=== PATIENT | male | born 1975 | race Caucasian/White ===

== ENCOUNTER 2019-07-13 15:05 | Emergency (ER) | payer MEDICAID, OTHER ==
[~2019-07-13] VITALS: Ht 182.9 cm; Wt 92.0 kg
[2019-07-13 15:29] VITALS: BP 153/110
[2019-07-13 16:11] LABS: BASOPHILS # (AUTO) 0.1 X10'3 (0-0.2); EOSINOPHILS # (AUTO) 0.2 X10'3 (0-0.9); EOSINOPHILS % (AUTO) 2.2 % (0-6); HEMATOCRIT 35.9 % (42.0-52.0); HEMOGLOBIN 12.4 g/dl (14.0-17.9); LYMPHOCYTES # (AUTO) 1.3 X10'3 (1.1-4.8); LYMPHOCYTES % (AUTO) 13.9 % (21-51); MEAN CORPUSCULAR HEMOGLOBIN 37.4 PG (27.0-31.0); MEAN CORPUSCULAR HGB CONC 34.6 g/dL (33.0-36.5); MEAN PLATELET VOLUME 8.8 FL (7.4-10.4); MONOCYTES # (AUTO) 0.7 X10'3 (0-0.9); MONOCYTES % (AUTO) 7.2 % (2-12); NEUTROPHILS # (AUTO) 7.2 X10'3 (1.8-7.7); NEUTROPHILS % (AUTO) 75.7 % (42-75); PLATELET COUNT 166 X10'3 (140-440); RED BLOOD COUNT 3.32 X10'6 (4.70-6.10); RED CELL DISTRIBUTION WIDTH 15.1 % (11.5-14.5); WHITE BLOOD COUNT 9.5 X10'3 (4.5-11.0)
[2019-07-13 16:28] LABS: ALANINE AMINOTRANSFERASE 61 U/L (12-78); ALBUMIN 2.5 G/DL (3.4-5.0); ALKALINE PHOSPHATASE 273 IU/L (46-116); ANION GAP 9 (8-16); ASPARTATE AMINO TRANSFERASE 184 U/L (10-37); BILIRUBIN,TOTAL 3.9 MG/DL (0.1-1.0); BLOOD UREA NITROGEN 7 MG/DL (7-18); BUN/CREATININE RATIO 8.6 (5.4-32.0); CALCIUM 8.8 MG/DL (8.5-10.1); CHLORIDE 101 MMOL/L (99-107); CREATININE 0.81 MG/DL (0.60-1.10); GLUCOSE 86 MG/DL (70-104); LIPASE 540 U/L (73-393); POTASSIUM 3.4 MMOL/L (3.5-5.1); SODIUM 134 MMOL/L (135-145); TOTAL CARBON DIOXIDE 24.1 MMOL/L (24-32); eGFR > 90 ML/MIN
[2019-07-13 16:31] LABS: ALBUMIN/GLOBULIN RATIO 0.5 (1.1-1.5); TOTAL PROTEIN 7.1 G/DL (6.4-8.2)
[2019-07-13 16:44] LABS: CLARITY,URINE CLEAR (Clear); COLOR,URINE AMBER (Yellow)
[2019-07-13 16:47] LABS: UA COLLECTION TYPE URINAL
[2019-07-13 16:51] LABS: BACTERIA,URINE NONE SEEN /HPF (Neg); COARSE GRANULAR CAST 0-3 /LPF (NEGATIVE); MUCUS STRANDS MODERATE /LPF (Neg); RBC,URINE NONE SEEN /HPF (0-2); SQUAMOUS EPITHELIAL CELL,UR FEW /LPF (FEW); WBC,URINE 0-4 /HPF (0-4)
[2019-07-13 19:49] LABS: ETHANOL 0.152 GM/DL (0.0-0.010)
[2019-07-13] MEDS ORDERED: normal saline 1000ML IV soln IVB ONE (20:10)
[2019-07-13] MEDS ORDERED: phenobarbital inj 260 MG in normal saline 100ml IV soln 100 ML IV ONE (20:10)
[2019-07-13 20:20] LABS: MAGNESIUM 1.9 MG/DL (1.5-2.4)
[2019-07-13 21:12] LABS: PARTIAL THROMBOPLASTIN TIME 35 SECONDS (22-32)
== END 2019-07-13 21:02 | disposition left against medical advice (07) ==
LOC: ER 15:05
DX: R14.0 Abdominal distension (gaseous) (principal); F10.239 Alcohol dependence with withdrawal, unspecified; F10.229 Alcohol dependence with intoxication, unspecified; R60.1 Generalized edema; R74.0 Nonspecific elevation of levels of transaminase and lactic acid dehydrogenase [LDH]; K85.90 Acute pancreatitis without necrosis or infection, unspecified; K70.31 Alcoholic cirrhosis of liver with ascites; K80.20 Calculus of gallbladder without cholecystitis without obstruction; K76.6 Portal hypertension; Z56.0 Unemployment, unspecified; Y90.0 Blood alcohol level of less than 20 mg/100 ml
CPT/HCPCS: 36415; 74176; 80053; 80320; 81001; 83690; 83735; 85025; 85379; 85610; 85730; 99284

== ENCOUNTER 2019-07-18 09:00 | Emergency (ER) | payer MEDICAID, OTHER ==
[~2019-07-18] VITALS: Ht 182.9 cm; Wt 91.0 kg
[2019-07-18] MEDS ORDERED: LIDOcaine 1% W/epiNEPHrine 1:100,000 20ml vial SQ ONE (09:35)
[2019-07-18] MEDS ORDERED: chlordiazePOXIDE 25mg capsule PO ONE (11:40)
[2019-07-18 12:00] VITALS: BP 130/87
[2019-07-18] MEDS ORDERED: CHLO25CA10 PO (12:19)
[2019-07-18 13:10] LABS: ALBUMIN,BODY FLUID 0.7 G/DL; LDH,BODY FLUID 55 U/L
[2019-07-18 13:18] LABS: BF RBC COUNT 96 /CU MM; BF WBC COUNT 77 /CU MM (0-1000); BFAPPEAR CLEAR; BFCOLOR YELLOW; BFVOLUME 40 ML
[2019-07-18 13:22] LABS: BF MESOTHELIAL CELLS FEW; LYMPHOCYTES,BODY FLUID 14 %; MONOCYTES,BODY FLUID 74 %; NEUTROPHILS,BODY FLUID 12 %
[2019-07-18 13:23] LABS: OTHER CELLS,BODY FLUID MACROPHAGES; TOTAL PROTEIN,BODY FLUID < 2.0 G/DL
== END 2019-07-18 12:04 | disposition home or self-care (01) ==
LOC: ER 09:01
DX: K70.31 Alcoholic cirrhosis of liver with ascites (principal); Z56.0 Unemployment, unspecified; Z79.899 Other long term (current) drug therapy; M79.89 Other specified soft tissue disorders
CPT/HCPCS: 49083; 71045; 82042; 83615; 84157; 87070; 89051; 99285

== ENCOUNTER 2019-07-23 20:56 | Emergency (ER) | payer MEDICAID, OTHER ==
[~2019-07-23] VITALS: Ht 182.9 cm; Wt 86.0 kg
[~2019-07-23 20:56] MED LIST: CHLO25CA10 PO
[2019-07-23 21:21] LABS: BASOPHILS # (AUTO) 0.1 X10'3 (0-0.2); BASOPHILS % (AUTO) 1.4 % (0-1); EOSINOPHILS # (AUTO) 0.3 X10'3 (0-0.9); HEMATOCRIT 38.7 % (42.0-52.0); HEMOGLOBIN 13.1 g/dl (14.0-17.9); LYMPHOCYTES # (AUTO) 1.8 X10'3 (1.1-4.8); LYMPHOCYTES % (AUTO) 19.2 % (21-51); MEAN CORPUSCULAR HEMOGLOBIN 38.2 PG (27.0-31.0); MEAN CORPUSCULAR HGB CONC 33.9 g/dL (33.0-36.5); MEAN CORPUSCULAR VOLUME 112.6 FL (78-98); MONOCYTES # (AUTO) 0.7 X10'3 (0-0.9); MONOCYTES % (AUTO) 7.4 % (2-12); NEUTROPHILS # (AUTO) 6.6 X10'3 (1.8-7.7); PLATELET COUNT 169 X10'3 (140-440); RED BLOOD COUNT 3.44 X10'6 (4.70-6.10); RED CELL DISTRIBUTION WIDTH 14.4 % (11.5-14.5); WHITE BLOOD COUNT 9.6 X10'3 (4.5-11.0)
[2019-07-23 21:33] LABS: ALANINE AMINOTRANSFERASE 48 U/L (12-78); ALBUMIN 2.3 G/DL (3.4-5.0); ALBUMIN/GLOBULIN RATIO 0.5 (1.1-1.5); ALKALINE PHOSPHATASE 224 IU/L (46-116); ANION GAP 8 (8-16); ASPARTATE AMINO TRANSFERASE 124 U/L (10-37); BILIRUBIN,TOTAL 2.7 MG/DL (0.1-1.0); BLOOD UREA NITROGEN 4 MG/DL (7-18); BUN/CREATININE RATIO 4.2 (5.4-32.0); CALCIUM 8.2 MG/DL (8.5-10.1); CHLORIDE 102 MMOL/L (99-107); CREATININE 0.95 MG/DL (0.60-1.10); GLUCOSE 134 MG/DL (70-104); LIPASE 452 U/L (73-393); POTASSIUM 3.4 MMOL/L (3.5-5.1); SODIUM 138 MMOL/L (135-145); TOTAL CARBON DIOXIDE 28.1 MMOL/L (24-32); TOTAL PROTEIN 6.9 G/DL (6.4-8.2); eGFR 87 ML/MIN
[2019-07-23 21:52] LABS: ANISOCYTOSIS 2+; PLATELET ESTIMATE NORMAL
[2019-07-23] MEDS ORDERED: FURO-150 PO (22:11)
[2019-07-23] MEDS ORDERED: SPIR100T5 PO (22:11)
[2019-07-23 22:19] LABS: CLARITY,URINE CLEAR (Clear); COLOR,URINE YELLOW (Yellow); GLUCOSE, URINE NEGATIVE (Neg); KETONES,URINE NEGATIVE (Neg); LEUKOCYTE ESTERASE ,URINE NEGATIVE (Neg); NITRITES, URINE NEGATIVE (Neg); OCCULT BLOOD,URINE NEGATIVE (Neg); PROTEIN,URINE NEGATIVE (Neg)
[2019-07-23 22:20] LABS: UA COLLECTION TYPE NON-SPECIFIED
[2019-07-23 22:27] VITALS: BP 112/83
== END 2019-07-23 22:31 | disposition home or self-care (01) ==
LOC: ER 20:56
DX: N43.3 Hydrocele, unspecified (principal); K70.31 Alcoholic cirrhosis of liver with ascites; Z72.89 Other problems related to lifestyle; Z56.0 Unemployment, unspecified; Z79.899 Other long term (current) drug therapy
CPT/HCPCS: 36415; 74176; 80053; 81003; 83690; 85025; 99284

== ENCOUNTER 2019-09-20 07:17 | Day surgery (SDC) | payer MEDICAID ==
[2019-09-20] VITALS (8 sets, daily range): BP systolic 132–149; BP diastolic 88–98
[~2019-09-20] VITALS: Ht 182.9 cm; Wt 81.2 kg
[~2019-09-20 07:17] MED LIST changes: +SPIR100T5 PO
[2019-09-20] MEDS ORDERED: albumin 25% 100mL bottle x 1 IV PRN (07:35)
[2019-09-20] MEDS ORDERED: normal saline 1000ml 1,000 ML IV PRN (07:35)
== END 2019-09-20 09:55 | disposition home or self-care (01) ==
LOC: SSTAY O 07:17
PROVIDERS: ATTEND Radiology Vascular & Interventional Radiology
DX: K70.31 Alcoholic cirrhosis of liver with ascites (principal); Z86.711 Personal history of pulmonary embolism; Z72.89 Other problems related to lifestyle; F17.290 Nicotine dependence, other tobacco product, uncomplicated
CPT/HCPCS: 49083

== ENCOUNTER 2019-10-10 11:10 | Day surgery (SDC) | payer MEDICAID ==
[~2019-10-10] VITALS: Ht 182.9 cm; Wt 80.0 kg
[2019-10-10 11:35] VITALS: BP 151/105
[2019-10-10] MEDS ORDERED: MIDAZolam 5mg/5ml vial ONE (11:46)
[2019-10-10] MEDS ORDERED: LIDOcaine Viscous 15ml cup ONE (11:46)
[2019-10-10] MEDS ORDERED: fentaNYL/PF 50MCG/1 ML 2ML syringe ONE (11:46)
[2019-10-10] MEDS ORDERED: NO HOME MEDS (11:47)
[2019-10-10 12:40] VITALS: BP 112/89
[2019-10-10 12:50] VITALS: BP 121/85
[2019-10-10 13:00] VITALS: BP 127/75
[2019-10-10 13:10] VITALS: BP 135/94
== END 2019-10-10 13:15 | disposition home or self-care (01) ==
LOC: GI LAB 11:10
PROVIDERS: ATTEND Internal Medicine Gastroenterology
DX: K74.60 Unspecified cirrhosis of liver (principal); I85.00 Esophageal varices without bleeding; K44.9 Diaphragmatic hernia without obstruction or gangrene; K76.6 Portal hypertension; K31.89 Other diseases of stomach and duodenum; K22.2 Esophageal obstruction
CPT/HCPCS: 43235; 99152; J2250; J3010; J7040; A4620

== ENCOUNTER 2020-08-03 05:45 | Inpatient (IN) | payer MEDICAID ==
[~2020-08-03] VITALS: Ht 182.9 cm; Wt 82.0 kg
[2020-08-03] VITALS (21 sets, daily range): BP systolic 82–142; BP diastolic 54–78
[~2020-08-03 05:45] MED LIST changes: -CHLO25CA10 PO; +NO HOME MEDS; -SPIR100T5 PO
[2020-08-03] MEDS ORDERED: octreotide 100mcg/1 ml ampule IV ONE (06:10)
[2020-08-03] MEDS ORDERED: octreotide inj. 500 MCG in normal saline 100ml IV soln 100 ML IV SCH (06:10)
[2020-08-03] MEDS ORDERED: normal saline 1000ML IV soln IV ONE (06:10)
[2020-08-03] MEDS ORDERED: famotidine/PF 10 mg/ml inj IV ONE (06:10)
[2020-08-03] MEDS ORDERED: pantoprazole 40 MG vial IV ONE (06:10)
--- NOTE | 2020-08-03 06:40 | NUR ---
Bloody emesis x1
[2020-08-03] MEDS: OCTREOTIDE 1,250 MCG in NS 250ml IV.SOLN IV SCH (07:11)
[2020-08-03] MEDS ORDERED: octreotide inj. 1,250 MCG in normal saline 250ml IV soln 250 ML IV ONE (07:25)
[2020-08-03 07:52] LABS: HEMOGLOBIN 8.6 g/dl (14.0-17.9)
[2020-08-03 07:54] LABS: HEMATOCRIT 24.8 % (42.0-52.0); MEAN CORPUSCULAR HGB CONC 34.8 g/dL (33.0-36.5); MEAN CORPUSCULAR VOLUME 109.3 FL (78-98); MEAN PLATELET VOLUME 9.4 FL (7.4-10.4); RED BLOOD COUNT 2.27 X10'6 (4.70-6.10); RED CELL DISTRIBUTION WIDTH 14.5 % (11.5-14.5); WHITE BLOOD COUNT 5.7 X10'3 (4.5-11.0)
[2020-08-03 08:05] LABS: ALANINE AMINOTRANSFERASE 28 U/L (12-78); ALBUMIN 2.2 G/DL (3.4-5.0); ALBUMIN/GLOBULIN RATIO 0.5 (1.1-1.5); ALKALINE PHOSPHATASE 160 IU/L (46-116); ANION GAP 12 (8-16); ASPARTATE AMINO TRANSFERASE 90 U/L (10-37); BILIRUBIN,TOTAL 4.2 MG/DL (0.1-1.0); BLOOD UREA NITROGEN 13 MG/DL (7-18); BUN/CREATININE RATIO 13.1 (5.4-32.0); CALCIUM 7.2 MG/DL (8.5-10.1); CHLORIDE 108 MMOL/L (99-107); CREATININE 0.99 MG/DL (0.60-1.10); GLUCOSE 121 MG/DL (70-104); LIPASE 295 U/L (73-393); POTASSIUM 4.1 MMOL/L (3.5-5.1); SODIUM 144 MMOL/L (135-145); TOTAL CARBON DIOXIDE 23.7 MMOL/L (24-32); TOTAL PROTEIN 6.5 G/DL (6.4-8.2); eGFR 83 ML/MIN
[2020-08-03 08:16] LABS: PLATELET COUNT 38 X10'3 (140-440)
[2020-08-03 08:49] LABS: TOTAL CELLS COUNTED 100
[2020-08-03 08:51] LABS: PLATELET ESTIMATE DECREASED; STOMATOCYTES FEW; TARGET CELLS 1+
--- NOTE | 2020-08-03 08:56 | NUR ---
Bloody emesis x1
[2020-08-03] MEDS ORDERED: normal saline 1000ML IV soln IVB ONE (09:20)
[2020-08-03] MEDS ORDERED: TRANEXAMIC ACID 1 GM IN NACL,ISO-OS 100 ML IV ONE (09:21)
--- NOTE | 2020-08-03 09:45 | NUR ---
SBP in 80s. Patient complaining of dizziness. Multiple bloody emesis this AM. Dr. Skinner updated. Orders placed.
[2020-08-03 09:59] LABS: PARTIAL THROMBOPLASTIN TIME 34 SECONDS (22-32)
--- NOTE | 2020-08-03 11:16 | NUR ---
DR. RIOS AT BEDSIDE FOR CENTRAL LINE AND ARTERIAL LINE PLACEMENT.
[2020-08-03] MEDS: pantoprazole 40MG/NS 100ML BAG 100 ML IV SCH ×4 (11:32→21:56)
[2020-08-03] MEDS ORDERED: magnesium 2GM in 50ml NS 50 ML IV ONE (11:35)
[2020-08-03] MEDS ORDERED: thiamine inj. 100 MG in normal saline 100ml IV soln 99 ML IV ONE (11:35)
[2020-08-03] MEDS ORDERED: phenobarbital inj 260 MG in normal saline 100ml IV soln 100 ML IV ONE (11:35)
[2020-08-03 12:01] LABS: MAGNESIUM 1.5 MG/DL (1.5-2.4)
[2020-08-03] MEDS ORDERED: LIDOcaine 2% 10ml TOPICAL JELLY (Urojet) TP ONE (12:35)
[2020-08-03] MEDS ORDERED: magnesium hydroxide 30ml (MOM) UD suspension PO PRN (12:35)
[2020-08-03] MEDS ORDERED: albuterol 2.5 MG/3 ML nebule NEB PRN (12:35)
[2020-08-03] MEDS ORDERED: acetaminophen 325mg tablet PO PRN ×2 (12:35)
[2020-08-03] MEDS ORDERED: morphine 2 MG/ML inj. syringe IV PRN (12:35)
[2020-08-03] MEDS: K, MAG and/or Phos replacement - Verify level? MC SCH (12:35)
[2020-08-03] MEDS ORDERED: morphine 4 MG/ML inj SYRINge IV PRN (12:35)
--- NOTE | 2020-08-03 13:15 | NUR ---
Unable to scan FFP units x2. Verified with Junaid FATIMA, see downtime documentation.
[2020-08-03 13:31] LABS: D-DIMER 4.05 MG/L FEU (0-0.50)
[2020-08-03 13:44] LABS: BASOPHILS % (AUTO) 0.8 % (0-1); EOSINOPHILS % (AUTO) 0.1 % (0-6); HEMATOCRIT 23.1 % (42.0-52.0); LYMPHOCYTES # (AUTO) 0.4 X10'3 (1.1-4.8); LYMPHOCYTES % (AUTO) 6.6 % (21-51); MEAN CORPUSCULAR HEMOGLOBIN 36.6 PG (27.0-31.0); MEAN CORPUSCULAR HGB CONC 34.6 g/dL (33.0-36.5); MEAN CORPUSCULAR VOLUME 105.6 FL (78-98); MEAN PLATELET VOLUME 9.8 FL (7.4-10.4); MONOCYTES # (AUTO) 0.3 X10'3 (0-0.9); MONOCYTES % (AUTO) 4.7 % (2-12); NEUTROPHILS # (AUTO) 5.1 X10'3 (1.8-7.7); NEUTROPHILS % (AUTO) 87.8 % (42-75); RED BLOOD COUNT 2.18 X10'6 (4.70-6.10); RED CELL DISTRIBUTION WIDTH 17.5 % (11.5-14.5); WHITE BLOOD COUNT 5.8 X10'3 (4.5-11.0)
[2020-08-03 13:48] LABS: PLATELET COUNT 34 X10'3 (140-440)
[2020-08-03 13:55] LABS: ALANINE AMINOTRANSFERASE 22 U/L (12-78); ALKALINE PHOSPHATASE 137 IU/L (46-116); ANION GAP 12 (8-16); ASPARTATE AMINO TRANSFERASE 78 U/L (10-37); BILIRUBIN,TOTAL 4.8 MG/DL (0.1-1.0); BLOOD UREA NITROGEN 14 MG/DL (7-18); BUN/CREATININE RATIO 17.7 (5.4-32.0); CALCIUM 6.6 MG/DL (8.5-10.1); CHLORIDE 109 MMOL/L (99-107); CREATININE 0.79 MG/DL (0.60-1.10); GLUCOSE 117 MG/DL (70-104); POTASSIUM 5.5 MMOL/L (3.5-5.1); SODIUM 143 MMOL/L (135-145); TOTAL CARBON DIOXIDE 22.2 MMOL/L (24-32); eGFR > 90 ML/MIN
[2020-08-03 13:57] LABS: ALBUMIN/GLOBULIN RATIO 0.5 (1.1-1.5); TOTAL PROTEIN 5.8 G/DL (6.4-8.2)
[2020-08-03] MEDS ORDERED: fentaNYL/PF 50MCG/1 ML 2ML syringe ONE ×3 (14:04→16:24)
[2020-08-03] MEDS ORDERED: MIDAZolam 1 MG/ML 5ML VIAL ONE ×2 (14:04→14:21)
[2020-08-03] MEDS ORDERED: LIDOcaine Viscous 15ml cup ONE (14:05)
[2020-08-03] MEDS ORDERED: epiNEPHrine 0.1mg/ml 10ml syringe ONE (14:06)
[2020-08-03] MEDS ORDERED: diphenhydrAMINE 50 mg/ml inj ONE (15:59)
--- NOTE | 2020-08-03 17:23 | NUR ---
Pt. to room 2013 from GI lab. Mullen inserted, CVL dressing changed to right art./CV line as it was falling off and saturated. Pt. remains sleepy and sedated from GI lab. Coags drawn and sent to lab. MRSA swab obtained and sent to lab.
[2020-08-03] MEDS: normal saline 1000ml 1,000 ML IV SCH ×3 (17:51→23:36)
--- NOTE | 2020-08-03 18:24 | NUR ---
Problems reprioritized. Patient report given, questions answered & plan of care reviewed with Darcy FATIMA.
--- NOTE | 2020-08-03 18:25 | NUR ---
Patient in room CICU 2013. I have received report from AKUA Stacy and had the opportunity to ask questions and assume patient care. Patient back from GI lab and still drowsy, has history of ETOH and is pulling at lines. A sitter is at the bedside, I will continue to monitor.
[2020-08-03] MEDS: ondansetron/PF 4mg/2ml inj IV PRN (22:48)
[2020-08-03 23:10] LABS: HEMOGLOBIN 7.6 g/dl (14.0-17.9); MEAN CORPUSCULAR HEMOGLOBIN 35.1 PG (27.0-31.0); MEAN CORPUSCULAR HGB CONC 34.9 g/dL (33.0-36.5); MEAN CORPUSCULAR VOLUME 100.6 FL (78-98); MEAN PLATELET VOLUME 8.4 FL (7.4-10.4); PLATELET COUNT 67 X10'3 (140-440); RED BLOOD COUNT 2.17 X10'6 (4.70-6.10); RED CELL DISTRIBUTION WIDTH 20.3 % (11.5-14.5); WHITE BLOOD COUNT 6.7 X10'3 (4.5-11.0)
[2020-08-03 23:36] LABS: HEMATOCRIT 21.9 % (42.0-52.0)
--- NOTE | 2020-08-03 23:41 | NUR ---
Cld HH results 7.6.[address] Michaud. Per MD with patient's stable vitals, we will repeat HH at 0200 with morning labs and re-evaluate then.
[2020-08-04] VITALS (31 sets, daily range): BP systolic 116–147; BP diastolic 69–83
[2020-08-04 02:39] LABS: BASOPHILS # (AUTO) 0.1 X10'3 (0-0.2); BASOPHILS % (AUTO) 0.8 % (0-1); EOSINOPHILS % (AUTO) 0.3 % (0-6); HEMOGLOBIN 7.4 g/dl (14.0-17.9); LYMPHOCYTES # (AUTO) 0.6 X10'3 (1.1-4.8); LYMPHOCYTES % (AUTO) 8.9 % (21-51); MEAN CORPUSCULAR HEMOGLOBIN 34.9 PG (27.0-31.0); MEAN CORPUSCULAR HGB CONC 34.6 g/dL (33.0-36.5); MEAN CORPUSCULAR VOLUME 100.9 FL (78-98); MEAN PLATELET VOLUME 8.9 FL (7.4-10.4); MONOCYTES # (AUTO) 0.6 X10'3 (0-0.9); MONOCYTES % (AUTO) 9.3 % (2-12); NEUTROPHILS # (AUTO) 5.3 X10'3 (1.8-7.7); NEUTROPHILS % (AUTO) 80.7 % (42-75); PLATELET COUNT 62 X10'3 (140-440); RED BLOOD COUNT 2.12 X10'6 (4.70-6.10); RED CELL DISTRIBUTION WIDTH 20.3 % (11.5-14.5); WHITE BLOOD COUNT 6.6 X10'3 (4.5-11.0)
[2020-08-04 02:47] LABS: PARTIAL THROMBOPLASTIN TIME 34 SECONDS (22-32)
[2020-08-04 02:54] LABS: HEMATOCRIT 21.4 % (42.0-52.0)
[2020-08-04 02:59] LABS: ALANINE AMINOTRANSFERASE 26 U/L (12-78); ALKALINE PHOSPHATASE 114 IU/L (46-116); ANION GAP 7 (8-16); ASPARTATE AMINO TRANSFERASE 83 U/L (10-37); BILIRUBIN,TOTAL 4.6 MG/DL (0.1-1.0); BLOOD UREA NITROGEN 16 MG/DL (7-18); BUN/CREATININE RATIO 21.3 (5.4-32.0); CALCIUM 6.5 MG/DL (8.5-10.1); CHLORIDE 110 MMOL/L (99-107); CREATININE 0.75 MG/DL (0.60-1.10); GLUCOSE 159 MG/DL (70-104); MAGNESIUM 1.7 MG/DL (1.5-2.4); POTASSIUM 4.1 MMOL/L (3.5-5.1); SODIUM 142 MMOL/L (135-145); eGFR > 90 ML/MIN
[2020-08-04 03:01] LABS: ALBUMIN/GLOBULIN RATIO 0.6 (1.1-1.5); TOTAL PROTEIN 5.6 G/DL (6.4-8.2)
--- NOTE | 2020-08-04 03:09 | NUR ---
Cld Dr. Michaud as HH is now 7.4.4. Per MD he will order 1unit of PRBC and will continue to monitor.
[2020-08-04] MEDS: pantoprazole 40MG/NS 100ML BAG 100 ML IV SCH ×5 (03:38→23:08)
[2020-08-04] MEDS ORDERED: diazepam inj 5 MG/ML inj. IV PRN (04:50)
[2020-08-04] MEDS ORDERED: CALCIUM GLUC 1gm/50ml NACL,iso 50 ML IV ONE (04:55)
--- NOTE | 2020-08-04 06:13 | NUR ---
Problems reprioritized. Patient report given, questions answered & plan of care reviewed with AKUA Vernon.
[2020-08-04 07:11] LABS: HEMATOCRIT 22.3 % (42.0-52.0); HEMOGLOBIN 7.9 g/dl (14.0-17.9); MEAN CORPUSCULAR HEMOGLOBIN 34.8 PG (27.0-31.0); MEAN CORPUSCULAR HGB CONC 35.5 g/dL (33.0-36.5); MEAN CORPUSCULAR VOLUME 97.9 FL (78-98); MEAN PLATELET VOLUME 8.6 FL (7.4-10.4); PLATELET COUNT 60 X10'3 (140-440); RED BLOOD COUNT 2.28 X10'6 (4.70-6.10); RED CELL DISTRIBUTION WIDTH 21.1 % (11.5-14.5); WHITE BLOOD COUNT 6.7 X10'3 (4.5-11.0)
[2020-08-04] MEDS ORDERED: haloperidol 5mg tablet PO PRN (07:20)
[2020-08-04] MEDS ORDERED: haloperidol lactate 5mg/ml inj IM PRN ×2 (07:20→10:15)
[2020-08-04] MEDS ORDERED: phytonadione inj. 10 MG in normal saline 100ml IV soln 100 ML IV ONE (07:20)
[2020-08-04] MEDS ORDERED: LORazepam 1 MG tablet PO PRN (07:20)
[2020-08-04] MEDS ORDERED: thiamine inj. 100 MG in normal saline 100ml IV soln 100 ML IV ONE (07:20)
--- NOTE | 2020-08-04 07:46 | NUR ---
0600 Received report from Mouna [facility]. 0630 Patient awake and assessed. A&O, moderate tremors noted in bilateral hands, voice shaky. Cooperative and pleasant. Honest about use of alcohol. Adamant it is only beer and no hard alcohol. Patient does vape, no cigarettes. Continues to have dark bloody stools, currently the stool does not look to contain andres blood. Medicated with 5mg valium. 0700- Dr Wiseman rounded, start mild alcohol withdrawl. 2 units FFP, 10mg vitamin K, 1 pack of platelets ( aware that patient is difficult to match and transfusion may be delayed) and 2 units of PRBCs on hold 0745- Tremors very mild at this time. Able to manipulate a cup and a spoon.
[2020-08-04] MEDS: normal saline 1000ml 1,000 ML IV SCH ×3 (08:35→21:58)
[2020-08-04] MEDS: thiamine 100mg tablet PO SCH (08:35)
[2020-08-04] MEDS: folic acid 1mg tablet PO SCH (08:35)
[2020-08-04] MEDS: multivitamins, therapeutics tablet PO SCH (08:36)
[2020-08-04] MEDS: K, MAG and/or Phos replacement - Verify level? MC SCH (08:48)
[2020-08-04] MEDS: ondansetron/PF 4mg/2ml inj IV PRN (09:52)
[2020-08-04 13:14] LABS: HEMOGLOBIN 7.8 g/dl (14.0-17.9); MEAN CORPUSCULAR HEMOGLOBIN 34.8 PG (27.0-31.0); MEAN CORPUSCULAR HGB CONC 35.2 g/dL (33.0-36.5); MEAN CORPUSCULAR VOLUME 98.6 FL (78-98); MEAN PLATELET VOLUME 8.8 FL (7.4-10.4); PLATELET COUNT 80 X10'3 (140-440); RED BLOOD COUNT 2.23 X10'6 (4.70-6.10); RED CELL DISTRIBUTION WIDTH 21.4 % (11.5-14.5); WHITE BLOOD COUNT 6.5 X10'3 (4.5-11.0)
[2020-08-04 13:33] LABS: PARTIAL THROMBOPLASTIN TIME 33 SECONDS (22-32)
--- NOTE | 2020-08-04 14:10 | NUR ---
Malnutrition Consult: Pt admit DX UGIB, etoh w/d, hematemesis, acute portal HTN, transaminitis, ascites, and etoh cirrhosis per EMR. Pt s/p 6-7 varices banding and esophageal dilation for stricture this admit. Hx etoh abuse w/ significant tremors advanced to moderate etoh withdrawal protocol this AM per MD. Pt has normal strength, no edema/wounds, no scaled wt this admit, and only reported wt hx which have remained relatively stable prior visits per EMR. Pt appears WD/WN per ER note as well as during RD visible assessment during critical care rounds. Pt hx paracentesis r/t ascites -2500ml September last year possible impacting wt hx. At this time pt does not meet minimum malnutrition criteria. Will monitor for further criteria this admit. Addendum: 08/04/20 at [address] Amended: Links added.
--- NOTE | 2020-08-04 15:22 | NUR ---
1300 Hct 22, previous was 22.3, neglible difference, bloody stools have decreased in frequency and volume, patient resting comfortably, wakes easily, no tremors when asleep. 1500 Art line no longer accurate. removed, small hematoma less than 3/4 inch in diameter, soft. Continue to monitor.
--- NOTE | 2020-08-04 18:21 | NUR ---
Problems reprioritized. Patient report given, questions answered & plan of care reviewed with Dylan.
--- NOTE | 2020-08-04 18:30 | NUR ---
Patient in room CICU 2013. I have received report from Janeen FATIMA and had the opportunity to ask questions and assume patient care.
[2020-08-04 19:56] LABS: HEMATOCRIT 23.1 % (42.0-52.0); HEMOGLOBIN 7.9 g/dl (14.0-17.9); MEAN CORPUSCULAR HEMOGLOBIN 34.5 PG (27.0-31.0); MEAN CORPUSCULAR HGB CONC 34.4 g/dL (33.0-36.5); MEAN CORPUSCULAR VOLUME 100.2 FL (78-98); MEAN PLATELET VOLUME 9.2 FL (7.4-10.4); PLATELET COUNT 79 X10'3 (140-440); RED CELL DISTRIBUTION WIDTH 21.4 % (11.5-14.5); WHITE BLOOD COUNT 6.9 X10'3 (4.5-11.0)
[2020-08-05] VITALS (19 sets, daily range): BP systolic 108–132; BP diastolic 69–89
[2020-08-05] MEDS: LORazepam 2 mg/ml vial IV PRN ×3 (00:17→05:30)
[2020-08-05] MEDS: haloperidol 5mg tablet PO PRN ×2 (01:16→05:30)
[2020-08-05 02:22] LABS: BASOPHILS # (AUTO) 0.1 X10'3 (0-0.2); BASOPHILS % (AUTO) 0.8 % (0-1); EOSINOPHILS # (AUTO) 0.1 X10'3 (0-0.9); HEMATOCRIT 22.9 % (42.0-52.0); HEMOGLOBIN 8.1 g/dl (14.0-17.9); LYMPHOCYTES # (AUTO) 0.9 X10'3 (1.1-4.8); LYMPHOCYTES % (AUTO) 13.5 % (21-51); MEAN CORPUSCULAR HEMOGLOBIN 35.1 PG (27.0-31.0); MEAN CORPUSCULAR HGB CONC 35.2 g/dL (33.0-36.5); MEAN CORPUSCULAR VOLUME 99.6 FL (78-98); MEAN PLATELET VOLUME 9.3 FL (7.4-10.4); MONOCYTES # (AUTO) 0.7 X10'3 (0-0.9); MONOCYTES % (AUTO) 9.6 % (2-12); NEUTROPHILS # (AUTO) 5.1 X10'3 (1.8-7.7); NEUTROPHILS % (AUTO) 74.1 % (42-75); PLATELET COUNT 72 X10'3 (140-440); RED CELL DISTRIBUTION WIDTH 21.1 % (11.5-14.5); WHITE BLOOD COUNT 6.9 X10'3 (4.5-11.0)
[2020-08-05 02:32] LABS: ALANINE AMINOTRANSFERASE 21 U/L (12-78); ALBUMIN 2.2 G/DL (3.4-5.0); ALKALINE PHOSPHATASE 108 IU/L (46-116); AMYLASE 40 U/L (25-115); ANION GAP 8 (8-16); ASPARTATE AMINO TRANSFERASE 74 U/L (10-37); BILIRUBIN,TOTAL 4.5 MG/DL (0.1-1.0); BLOOD UREA NITROGEN 12 MG/DL (7-18); CHLORIDE 107 MMOL/L (99-107); GLUCOSE 106 MG/DL (70-104); LIPASE 210 U/L (73-393); MAGNESIUM 1.7 MG/DL (1.5-2.4); POTASSIUM 3.2 MMOL/L (3.5-5.1); SODIUM 142 MMOL/L (135-145); TOTAL CARBON DIOXIDE 27.2 MMOL/L (24-32); eGFR > 90 ML/MIN
[2020-08-05 02:37] LABS: ALBUMIN/GLOBULIN RATIO 0.6 (1.1-1.5); PHOSPHORUS 1.6 MG/DL (2.3-4.5); TOTAL PROTEIN 5.9 G/DL (6.4-8.2)
[2020-08-05] MEDS: normal saline 1000ml 1,000 ML IV SCH (02:53)
[2020-08-05] MEDS: potassium Cl 20 mEq SR tablet PO PRN ×3 (03:15→12:32)
[2020-08-05] MEDS: pantoprazole 40MG/NS 100ML BAG 100 ML IV SCH ×4 (04:27→20:32)
[2020-08-05 04:34] LABS: ANISOCYTOSIS 3+; PLATELET ESTIMATE DECREASED
[2020-08-05] MEDS: OCTREOTIDE 1,250 MCG in NS 250ml IV.SOLN IV SCH (05:34)
--- NOTE | 2020-08-05 06:11 | NUR ---
Problems reprioritized. Patient report given, questions answered & plan of care reviewed with Catracho FATIMA.
[2020-08-05 07:35] LABS: PARTIAL THROMBOPLASTIN TIME 32 SECONDS (22-32)
[2020-08-05] MEDS: K, MAG and/or Phos replacement - Verify level? MC SCH (08:00)
[2020-08-05] MEDS: folic acid 1mg tablet PO SCH (08:47)
[2020-08-05] MEDS: thiamine 100mg tablet PO SCH (08:47)
[2020-08-05] MEDS: multivitamins, therapeutics tablet PO SCH (08:47)
--- NOTE | 2020-08-05 10:16 | NUR ---
Patient in room CICU 2013. I have received report from Dylan and had the opportunity to ask questions and assume patient care.
--- NOTE | 2020-08-05 10:16 | NUR ---
0800- Patient drowsy, oriented to self and town. Mumbling mostly, difficult to understand, no tremors noted at this time. O2 via nasal cannula while sleeping. Cooperative. 0900- Girlfriend Komal here to visit. Pleasant. Does not seem to share the same lifestyle as patient. Discussed options of rehab, AA for patient and Nancy for her. Receptive and very aware of patients alcohol abuse . 1000- Critical care rounds. Transfer to PCU with tele, dc IV fluids, work with PT, d/c central line. start clear liquid diet.
[2020-08-05] MEDS: Neutra Phos packet PO SCH ×2 (12:32→20:31)
--- NOTE | 2020-08-05 15:46 | NUR ---
Patient in room CICU 2013. I have received report from AKUA Hayden and had the opportunity to ask questions and awaiting pts arrival from CICU.
--- NOTE | 2020-08-05 16:00 | NUR ---
Patient arrived from CICU, already on a jeramy bed. Alert and Oriented x3. BLL, SRx2, CL within reach, non skid socks on. 2 RN skin assessment complete. All belongings in patient's closet and at bedside. First set of vitals complete.
--- NOTE | 2020-08-05 16:11 | NUR ---
1600- Reported off to Sarahi on PCU, transported patient and all belongings upstairs. Oriented patient to call light and handed off to PORTRAIT PHOTOGRAPHER.
--- NOTE | 2020-08-05 18:30 | NUR ---
Problems reprioritized. Patient report given, questions answered & plan of care reviewed with AKUA Damon. Pt sitting up visiting with family member. No signs of distress noted. All pt needs met at this time.
--- NOTE | 2020-08-05 18:31 | NUR ---
Patient in room PCU 3012. I have received bedside report from AKUA Mcclain and had the opportunity to ask questions and assume patient care.
[2020-08-06] MEDS: LORazepam 2 mg/ml vial IV PRN ×7 (00:46→19:30)
[2020-08-06] MEDS: pantoprazole 40MG/NS 100ML BAG 100 ML IV SCH ×5 (00:52→21:41)
[2020-08-06 02:00] VITALS: BP 122/85
[2020-08-06] MEDS: haloperidol 5mg tablet PO PRN ×2 (02:27→19:30)
--- NOTE | 2020-08-06 04:26 | NUR ---
Pt became agitated and wanted to leave AMA. Talked w/him at length about the severity of his illness and the need to continue treatment. Pt was shaky and slurring his words. I encouraged him to call his girlfriend, she talked him into staying. I offered ativan to help calm him down and allow him to sleep. After the first dose, the patient seemed calmer, however within an hour and a half was agitated again. He was setting alarms on his phone to wake him up for work. Another dose of ativan was given along with haldol PO. Pt continued to ask to go outside for fresh air, but was able to be redirected and reoriented.
[2020-08-06 06:00] VITALS: BP 120/94
--- NOTE | 2020-08-06 06:19 | NUR ---
Patient in room PCU 3012. I have received report from AKUA Damon and had the opportunity to ask questions and assume patient care.
--- NOTE | 2020-08-06 06:21 | NUR ---
Problems reprioritized. Patient report given, questions answered & plan of care reviewed with AKUA Sousa.
[2020-08-06 07:11] LABS: BASOPHILS # (AUTO) 0.1 X10'3 (0-0.2); BASOPHILS % (AUTO) 1.2 % (0-1); EOSINOPHILS # (AUTO) 0.2 X10'3 (0-0.9); EOSINOPHILS % (AUTO) 2.9 % (0-6); HEMATOCRIT 25.3 % (42.0-52.0); HEMOGLOBIN 8.9 g/dl (14.0-17.9); LYMPHOCYTES # (AUTO) 1.1 X10'3 (1.1-4.8); MEAN CORPUSCULAR HEMOGLOBIN 35.1 PG (27.0-31.0); MEAN CORPUSCULAR HGB CONC 35.1 g/dL (33.0-36.5); MEAN PLATELET VOLUME 9.6 FL (7.4-10.4); MONOCYTES # (AUTO) 0.8 X10'3 (0-0.9); MONOCYTES % (AUTO) 9.6 % (2-12); NEUTROPHILS # (AUTO) 5.7 X10'3 (1.8-7.7); NEUTROPHILS % (AUTO) 72.3 % (42-75); PLATELET COUNT 88 X10'3 (140-440); RED BLOOD COUNT 2.53 X10'6 (4.70-6.10); RED CELL DISTRIBUTION WIDTH 20.3 % (11.5-14.5); WHITE BLOOD COUNT 7.9 X10'3 (4.5-11.0)
[2020-08-06] MEDS: K, MAG and/or Phos replacement - Verify level? MC SCH (08:00)
[2020-08-06 08:19] LABS: ALANINE AMINOTRANSFERASE 27 U/L (12-78); ALBUMIN 2.4 G/DL (3.4-5.0); ALKALINE PHOSPHATASE 115 IU/L (46-116); AMYLASE 52 U/L (25-115); ANION GAP 9 (8-16); ASPARTATE AMINO TRANSFERASE 80 U/L (10-37); BILIRUBIN,TOTAL 5.1 MG/DL (0.1-1.0); BLOOD UREA NITROGEN 8 MG/DL (7-18); BUN/CREATININE RATIO 10.3 (5.4-32.0); CALCIUM 7.7 MG/DL (8.5-10.1); CHLORIDE 103 MMOL/L (99-107); CREATININE 0.78 MG/DL (0.60-1.10); GLUCOSE 105 MG/DL (70-104); LIPASE 224 U/L (73-393); MAGNESIUM 1.5 MG/DL (1.5-2.4); SODIUM 137 MMOL/L (135-145); TOTAL CARBON DIOXIDE 24.7 MMOL/L (24-32); eGFR > 90 ML/MIN
--- NOTE | 2020-08-06 08:29 | NUR ---
Orders to progress diet as tolerated put in per Dr. Christensen and full liquid tray ordered for lunch for patient.
[2020-08-06 08:30] LABS: ALBUMIN/GLOBULIN RATIO 0.6 (1.1-1.5); PHOSPHORUS 1.5 MG/DL (2.3-4.5); TOTAL PROTEIN 6.5 G/DL (6.4-8.2)
--- NOTE | 2020-08-06 08:32 | NUR ---
Orders to DC mckeon catheter put in per Dr. Christensen.
[2020-08-06] MEDS: potassium Cl 20 mEq SR tablet PO PRN ×3 (09:32→18:04)
[2020-08-06] MEDS: folic acid 1mg tablet PO SCH (09:32)
[2020-08-06] MEDS: multivitamins, therapeutics tablet PO SCH (09:32)
--- NOTE | 2020-08-06 09:44 | NUR ---
Notified by CN that patient had critical value of 3.0 for Serum K+. Protocol initiated at [address] Christensen: PAGER ID: [phone] MESSAGE: Ava Kurtz [id number] CRIT K+ 3.0. Protocol replacement started. Any further orders? Merry [phone]
[2020-08-06] MEDS ORDERED: LORazepam 1 MG tablet PO PRN (10:15)
[2020-08-06 11:00] VITALS: BP 132/79
[2020-08-06] MEDS: thiamine 100mg tablet PO SCH (11:15)
[2020-08-06 15:00] VITALS: BP 131/82
[2020-08-06] MEDS: Neutra Phos packet PO SCH (17:00)
[2020-08-06 18:00] VITALS: BP 124/79
[2020-08-06] MEDS: lactulose 20gm/30ml cup PO SCH (19:30)
[2020-08-06 22:00] VITALS: BP 126/83
[2020-08-07] MEDS: LORazepam 2 mg/ml vial IV PRN ×4 (00:36→13:36)
[2020-08-07 01:15] LABS: BASOPHILS # (AUTO) 0.1 X10'3 (0-0.2); BASOPHILS % (AUTO) 0.9 % (0-1); EOSINOPHILS # (AUTO) 0.2 X10'3 (0-0.9); EOSINOPHILS % (AUTO) 3.2 % (0-6); HEMATOCRIT 26.5 % (42.0-52.0); HEMOGLOBIN 9.3 g/dl (14.0-17.9); LYMPHOCYTES # (AUTO) 1.1 X10'3 (1.1-4.8); LYMPHOCYTES % (AUTO) 14.9 % (21-51); MEAN CORPUSCULAR HEMOGLOBIN 35.6 PG (27.0-31.0); MEAN CORPUSCULAR HGB CONC 35.2 g/dL (33.0-36.5); MEAN CORPUSCULAR VOLUME 101.1 FL (78-98); MEAN PLATELET VOLUME 9.7 FL (7.4-10.4); MONOCYTES # (AUTO) 0.9 X10'3 (0-0.9); MONOCYTES % (AUTO) 11.8 % (2-12); NEUTROPHILS # (AUTO) 5.1 X10'3 (1.8-7.7); NEUTROPHILS % (AUTO) 69.2 % (42-75); PLATELET COUNT 81 X10'3 (140-440); RED BLOOD COUNT 2.62 X10'6 (4.70-6.10); RED CELL DISTRIBUTION WIDTH 20.1 % (11.5-14.5); WHITE BLOOD COUNT 7.3 X10'3 (4.5-11.0)
[2020-08-07] MEDS: pantoprazole 40MG/NS 100ML BAG 100 ML IV SCH ×5 (01:17→21:00)
[2020-08-07] MEDS: lactulose 20gm/30ml cup PO SCH ×4 (01:19→20:00)
[2020-08-07 01:25] LABS: ALANINE AMINOTRANSFERASE 30 U/L (12-78); ALBUMIN 2.5 G/DL (3.4-5.0); ALKALINE PHOSPHATASE 128 IU/L (46-116); AMYLASE 66 U/L (25-115); ANION GAP 9 (8-16); ASPARTATE AMINO TRANSFERASE 78 U/L (10-37); BILIRUBIN,TOTAL 5.9 MG/DL (0.1-1.0); BLOOD UREA NITROGEN 9 MG/DL (7-18); BUN/CREATININE RATIO 11.7 (5.4-32.0); CALCIUM 8.3 MG/DL (8.5-10.1); CHLORIDE 106 MMOL/L (99-107); CREATININE 0.77 MG/DL (0.60-1.10); GLUCOSE 99 MG/DL (70-104); LIPASE 314 U/L (73-393); MAGNESIUM 1.6 MG/DL (1.5-2.4); POTASSIUM 3.9 MMOL/L (3.5-5.1); SODIUM 138 MMOL/L (135-145); TOTAL CARBON DIOXIDE 22.8 MMOL/L (24-32); eGFR > 90 ML/MIN
[2020-08-07 01:33] LABS: ALBUMIN/GLOBULIN RATIO 0.6 (1.1-1.5); PHOSPHORUS 2.5 MG/DL (2.3-4.5)
[2020-08-07 02:00] VITALS: BP 133/85
[2020-08-07 03:07] LABS: ANISOCYTOSIS 3+; MICROCYTOSIS 1+; PLATELET ESTIMATE DECREASED; POLYCHROMASIA 1+; TARGET CELLS FEW
[2020-08-07 06:00] VITALS: BP 142/87
--- NOTE | 2020-08-07 06:10 | NUR ---
Patient in room PCU 3012. I have received report from AKUA Damon and had the opportunity to ask questions and assume patient care.
--- NOTE | 2020-08-07 06:20 | NUR ---
Problems reprioritized. Patient report given, questions answered & plan of care reviewed with AKUA Sousa.
[2020-08-07] MEDS: OCTREOTIDE 1,250 MCG in NS 250ml IV.SOLN IV SCH (06:55)
[2020-08-07] MEDS: K, MAG and/or Phos replacement - Verify level? MC SCH (08:00)
[2020-08-07] MEDS: thiamine 100mg tablet PO SCH (09:10)
[2020-08-07] MEDS: folic acid 1mg tablet PO SCH (09:11)
[2020-08-07] MEDS: multivitamins, therapeutics tablet PO SCH (09:11)
--- NOTE | 2020-08-07 09:49 | NUR ---
Initial: Pt admit for GIB secondary to esophageal varices and gastropathy, severe EtOH w/d, portal HTN, transaminitis, ascites, and acute encephalopathy. Pt receiving routine Thiamine, Folic acid, and MVI for EtOH hx. Pt documented as A/O x 3 and confused, in restraints receiving moderate assistance with meals though not eating well with average 0-25% PO intake on liquid diet. Poor PO intake likely r/t ALOC with EtOH w/d. Recommend continuing to assist with meals and encourage PO intake. Hopeful that PO intake will improve as EtOH w/d symptoms improve. LBM 08/05 receiving routine Lactulose. Will continue to follow closely and make recommendations as appropriate. Recommendations: 1) Advance to regular diet as medically indicated 2) Continue to assist with meals and encourage PO intake in view of ALOC and severe EtOH w/d in restraints 3) Continue routine Thiamine, Folic acid, and MVI with EtOH and elevated MCV 4) Bowel care per rx 5) Weekly scaled weights Addendum: 08/07/20 at [address] Amended: Links added.
[2020-08-07 11:00] VITALS: BP 134/88
[2020-08-07 15:00] VITALS: BP 134/80
--- NOTE | 2020-08-07 18:06 | NUR ---
Problems reprioritized. Patient report given, questions answered & plan of care reviewed with AKUA Lara.
[2020-08-07 19:00] VITALS: BP 97/56
[2020-08-07 23:00] VITALS: BP 126/83
[2020-08-08] VITALS (7 sets, daily range): BP systolic 74–122; BP diastolic 41–72
[2020-08-08] MEDS: pantoprazole 40MG/NS 100ML BAG 100 ML IV SCH ×5 (01:47→21:00)
[2020-08-08] MEDS: lactulose 20gm/30ml cup PO SCH ×4 (02:00→20:00)
--- NOTE | 2020-08-08 06:10 | NUR ---
Patient in room PCU 3012. I have received report from Jane FATIMA and had the opportunity to ask questions and assume patient care.
[2020-08-08 06:27] LABS: BASOPHILS # (AUTO) 0.1 X10'3 (0-0.2); BASOPHILS % (AUTO) 1.3 % (0-1); EOSINOPHILS # (AUTO) 0.3 X10'3 (0-0.9); EOSINOPHILS % (AUTO) 3.4 % (0-6); HEMATOCRIT 28.6 % (42.0-52.0); LYMPHOCYTES # (AUTO) 1.1 X10'3 (1.1-4.8); LYMPHOCYTES % (AUTO) 14.3 % (21-51); MEAN CORPUSCULAR HEMOGLOBIN 35.6 PG (27.0-31.0); MEAN CORPUSCULAR HGB CONC 34.8 g/dL (33.0-36.5); MEAN CORPUSCULAR VOLUME 102.2 FL (78-98); MEAN PLATELET VOLUME 9.9 FL (7.4-10.4); MONOCYTES # (AUTO) 1.1 X10'3 (0-0.9); MONOCYTES % (AUTO) 14.4 % (2-12); NEUTROPHILS # (AUTO) 5.2 X10'3 (1.8-7.7); NEUTROPHILS % (AUTO) 66.6 % (42-75); PLATELET COUNT 81 X10'3 (140-440); RED BLOOD COUNT 2.79 X10'6 (4.70-6.10); RED CELL DISTRIBUTION WIDTH 20.1 % (11.5-14.5); WHITE BLOOD COUNT 7.8 X10'3 (4.5-11.0)
[2020-08-08 06:36] LABS: ALANINE AMINOTRANSFERASE 32 U/L (12-78); ALBUMIN 2.5 G/DL (3.4-5.0); ALKALINE PHOSPHATASE 133 IU/L (46-116); AMYLASE 73 U/L (25-115); ANION GAP 9 (8-16); ASPARTATE AMINO TRANSFERASE 65 U/L (10-37); BILIRUBIN,TOTAL 6.1 MG/DL (0.1-1.0); BLOOD UREA NITROGEN 9 MG/DL (7-18); BUN/CREATININE RATIO 12.7 (5.4-32.0); CALCIUM 8.3 MG/DL (8.5-10.1); CHLORIDE 103 MMOL/L (99-107); CREATININE 0.71 MG/DL (0.60-1.10); GLUCOSE 80 MG/DL (70-104); LIPASE 412 U/L (73-393); MAGNESIUM 1.5 MG/DL (1.5-2.4); POTASSIUM 3.2 MMOL/L (3.5-5.1); SODIUM 136 MMOL/L (135-145); TOTAL CARBON DIOXIDE 24.5 MMOL/L (24-32); eGFR > 90 ML/MIN
[2020-08-08 06:37] LABS: ALBUMIN/GLOBULIN RATIO 0.6 (1.1-1.5); PHOSPHORUS 3.9 MG/DL (2.3-4.5)
[2020-08-08] MEDS: K, MAG and/or Phos replacement - Verify level? MC SCH (08:00)
[2020-08-08] MEDS: thiamine 100mg tablet PO SCH (08:17)
[2020-08-08] MEDS: multivitamins, therapeutics tablet PO SCH (08:17)
[2020-08-08] MEDS: folic acid 1mg tablet PO SCH (08:17)
[2020-08-08] MEDS: potassium Cl 20 mEq SR tablet PO PRN (08:17)
[2020-08-08] MEDS ORDERED: LORazepam 1 MG tablet PO PRN (10:15)
[2020-08-08] MEDS ORDERED: LORazepam 2 mg/ml vial IV PRN (10:15)
[2020-08-08] MEDS: propranolol 10mg tablet PO SCH ×2 (13:00→21:00)
--- NOTE | 2020-08-08 18:48 | NUR ---
Problems reprioritized. Patient report given, questions answered & plan of care reviewed with Danielle FATIMA.
[2020-08-09] MEDS: pantoprazole 40MG/NS 100ML BAG 100 ML IV SCH ×3 (00:12→10:51)
[2020-08-09 02:00] VITALS: BP 128/68
[2020-08-09] MEDS: lactulose 20gm/30ml cup PO SCH ×2 (02:00→08:51)
[2020-08-09 06:22] LABS: BASOPHILS # (AUTO) 0.1 X10'3 (0-0.2); BASOPHILS % (AUTO) 1.2 % (0-1); EOSINOPHILS # (AUTO) 0.4 X10'3 (0-0.9); EOSINOPHILS % (AUTO) 5.3 % (0-6); HEMATOCRIT 28.4 % (42.0-52.0); HEMOGLOBIN 9.9 g/dl (14.0-17.9); LYMPHOCYTES # (AUTO) 1.1 X10'3 (1.1-4.8); LYMPHOCYTES % (AUTO) 16.5 % (21-51); MEAN CORPUSCULAR HEMOGLOBIN 35.5 PG (27.0-31.0); MEAN CORPUSCULAR HGB CONC 34.7 g/dL (33.0-36.5); MEAN CORPUSCULAR VOLUME 102.3 FL (78-98); MEAN PLATELET VOLUME 9.5 FL (7.4-10.4); MONOCYTES # (AUTO) 1.2 X10'3 (0-0.9); MONOCYTES % (AUTO) 17.8 % (2-12); NEUTROPHILS # (AUTO) 4.1 X10'3 (1.8-7.7); NEUTROPHILS % (AUTO) 59.2 % (42-75); PLATELET COUNT 84 X10'3 (140-440); RED BLOOD COUNT 2.78 X10'6 (4.70-6.10); RED CELL DISTRIBUTION WIDTH 20.1 % (11.5-14.5); WHITE BLOOD COUNT 6.9 X10'3 (4.5-11.0)
--- NOTE | 2020-08-09 06:22 | NUR ---
Problems reprioritized. Patient report given, questions answered & plan of care reviewed with Tonny FATIMA. Addendum: 08/09/20 at 06 by Maia Samson RN Amended: Links added.
--- NOTE | 2020-08-09 06:26 | NUR ---
Patient in room PCU 3012. I have received report from Maia FATIMA and had the opportunity to ask questions and assume patient care.
[2020-08-09 06:35] LABS: ALANINE AMINOTRANSFERASE 31 U/L (12-78); ALBUMIN 2.4 G/DL (3.4-5.0); ALBUMIN/GLOBULIN RATIO 0.5 (1.1-1.5); ALKALINE PHOSPHATASE 134 IU/L (46-116); AMYLASE 73 U/L (25-115); ANION GAP 12 (8-16); ASPARTATE AMINO TRANSFERASE 60 U/L (10-37); BILIRUBIN,TOTAL 5.8 MG/DL (0.1-1.0); BLOOD UREA NITROGEN 15 MG/DL (7-18); BUN/CREATININE RATIO 17.4 (5.4-32.0); CALCIUM 8.2 MG/DL (8.5-10.1); CHLORIDE 103 MMOL/L (99-107); CREATININE 0.86 MG/DL (0.60-1.10); GLUCOSE 89 MG/DL (70-104); LIPASE 446 U/L (73-393); MAGNESIUM 1.7 MG/DL (1.5-2.4); PHOSPHORUS 4.3 MG/DL (2.3-4.5); POTASSIUM 3.2 MMOL/L (3.5-5.1); SODIUM 137 MMOL/L (135-145); TOTAL CARBON DIOXIDE 21.7 MMOL/L (24-32); TOTAL PROTEIN 6.9 G/DL (6.4-8.2); eGFR > 90 ML/MIN
[2020-08-09 06:47] VITALS: BP 110/55
[2020-08-09 07:08] LABS: PLATELET ESTIMATE DECREASED; TOTAL CELLS COUNTED 100
[2020-08-09 07:09] LABS: ANISOCYTOSIS 3+; POIKILOCYTOSIS FEW
[2020-08-09] MEDS: K, MAG and/or Phos replacement - Verify level? MC SCH (08:00)
[2020-08-09] MEDS: propranolol 10mg tablet PO SCH ×2 (08:50→13:00)
[2020-08-09] MEDS: thiamine 100mg tablet PO SCH (08:50)
[2020-08-09] MEDS: multivitamins, therapeutics tablet PO SCH (08:50)
[2020-08-09] MEDS: folic acid 1mg tablet PO SCH (08:51)
[2020-08-09] MEDS: potassium Cl 20 mEq SR tablet PO PRN (08:56)
[2020-08-09 11:00] VITALS: BP 94/59
[2020-08-09] MEDS ORDERED: PANT-47 PO (11:30)
[2020-08-09] MEDS ORDERED: PROP10TA10 PO (11:30)
[2020-08-09] MEDS ORDERED: LACT10SO32 PO (11:30)
[2020-08-09] MEDS ORDERED: POTA20TA10 PO (11:30)
--- NOTE | 2020-08-09 11:30 | NUR ---
Patient walked with standby around the unit for 300 feet. tolerated well.
--- NOTE | 2020-08-09 13:28 | NUR ---
PAGER ID: [phone] MESSAGE: Tonny Surg [phone] re: [phone] Jerardo Mcfadden Patient states he needs a OK to return to work for his job. Thanks Tonny.
--- NOTE | 2020-08-09 14:00 | NUR ---
Patient discharge teaching was completed with family in the room. Patient expressed verbal understanding of new medications and is aware that they have been escripted to his own pharmacy. Patient understands he is able to return to work 08/11/20 and IV was taken out at this time as well. Canula was whole and intact upon inspection. Minimal bleeding was noted.
--- NOTE | 2020-08-09 14:00 | NUR ---
patient discharged into care of family, discharge corazon Addendum: 08/09/20 at 1739 by Portillo Gleason RN was comp
== END 2020-08-09 13:58 | disposition home or self-care (01) ==
LOC: ER 05:46 → ED HOLD 12:34 → CICU 2S 17:39 → PCU 3S 08-05 16:00
PROVIDERS: ADMIT Surgery Surgical Critical Care; ATTEND Surgery Surgical Critical Care
PROC: 30233K1 Transfusion of Nonautologous Frozen Plasma into Peripheral Vein, Percutaneous Approach (ICD-10-PCS; principal; 2020-08-03)
PROC: 30233N1 Transfusion of Nonautologous Red Blood Cells into Peripheral Vein, Percutaneous Approach (ICD-10-PCS; 2020-08-03)
PROC: 30233R1 Transfusion of Nonautologous Platelets into Peripheral Vein, Percutaneous Approach (ICD-10-PCS; 2020-08-03)
DX: K76.6 Portal hypertension (principal); I85.11 Secondary esophageal varices with bleeding; G93.41 Metabolic encephalopathy; I95.9 Hypotension, unspecified; D69.6 Thrombocytopenia, unspecified; D62 Acute posthemorrhagic anemia; K72.90 Hepatic failure, unspecified without coma; Z78.1 Physical restraint status; K31.89 Other diseases of stomach and duodenum; E87.6 Hypokalemia; F10.229 Alcohol dependence with intoxication, unspecified; F10.239 Alcohol dependence with withdrawal, unspecified; K70.31 Alcoholic cirrhosis of liver with ascites
CPT/HCPCS: 36415; 36430; 36556; 43244; 43249; 43255; 71045; 80053; 82140; 82150; 82948; 83690; 83735; 84100; 84145; 85007; 85008; 85025; 85027; 85379; 85384; 85610; 85730; 86885; 86900; 86901; 86920; 87081; 93005; 97110; 97116; 97161; 97530; 99152; 99153; 99291; A4620; C1726; C1769; C9113; G0378; J0171; J1200; J1630; J2060; J2250; J2354; J2405; J2560; J3010; J3360; J3411; J3430; J3475; J3490; J7030; J7040; J7050; P9016; P9035; P9059

== ENCOUNTER 2021-12-10 09:31 | Day surgery (SDC) | payer MEDICAID ==
[~2021-12-10] VITALS: Ht 182.9 cm; Wt 85.0 kg
[~2021-12-10 09:31] MED LIST changes: +LACT10SO32 PO; -NO HOME MEDS; +PANT-47 PO; +POTA-197 PO; +PROP10TA10 PO
[2021-12-10 09:40] VITALS: BP 137/87
[2021-12-10] MEDS ORDERED: NO HOME MEDS (09:44)
[2021-12-10] MEDS ORDERED: fentaNYL/PF 50MCG/1 ML 2ML syringe ONE (09:45)
[2021-12-10] MEDS ORDERED: MIDAZolam 1 MG/ML 5ML VIAL ONE (09:45)
[2021-12-10] MEDS ORDERED: LIDOcaine Viscous 15ml cup ONE (09:46)
[2021-12-10 10:54] VITALS: BP 128/73
[2021-12-10 11:04] VITALS: BP 125/74
[2021-12-10 11:14] VITALS: BP 128/78
== END 2021-12-10 11:40 | disposition home or self-care (01) ==
LOC: GI LAB 09:31
PROVIDERS: ATTEND Internal Medicine Gastroenterology
DX: I85.00 Esophageal varices without bleeding (principal); K76.6 Portal hypertension; K31.89 Other diseases of stomach and duodenum; Z79.899 Other long term (current) drug therapy
CPT/HCPCS: 43235; 99152; 99153; J2250; J3010; Z7512; A4620

== ENCOUNTER 2023-03-31 14:49 | Emergency (ER) | payer MEDICAID ==
[~2023-03-31] VITALS: Ht 182.9 cm; Wt 80.5 kg
[~2023-03-31 14:49] MED LIST changes: -LACT10SO32 PO; +NO HOME MEDS; -PANT-47 PO; -POTA-197 PO; -PROP10TA10 PO
[2023-03-31 16:52] LABS: EOSINOPHILS # (AUTO) 0.3 X10'3 (0-0.9); EOSINOPHILS % (AUTO) 5.3 % (0-6); HEMATOCRIT 36.7 % (42.0-52.0); HEMOGLOBIN 12.6 g/dl (14.0-17.9); LYMPHOCYTES # (AUTO) 1.4 X10'3 (1.1-4.8); LYMPHOCYTES % (AUTO) 28.7 % (21-51); MEAN CORPUSCULAR HGB CONC 34.3 g/dL (33.0-36.5); MEAN CORPUSCULAR VOLUME 101.8 FL (78-98); MEAN PLATELET VOLUME 8.4 FL (7.4-10.4); MONOCYTES # (AUTO) 0.5 X10'3 (0-0.9); MONOCYTES % (AUTO) 11.4 % (2-12); NEUTROPHILS # (AUTO) 2.6 X10'3 (1.8-7.7); NEUTROPHILS % (AUTO) 53.6 % (42-75); RED CELL DISTRIBUTION WIDTH 15.8 % (11.5-14.5); WHITE BLOOD COUNT 4.8 X10'3 (4.5-11.0)
[2023-03-31 17:12] LABS: PLATELET COUNT 42 X10'3 (140-440)
[2023-03-31 17:14] LABS: ANISOCYTOSIS FEW; PLATELET ESTIMATE DECREASED; POIKILOCYTOSIS FEW
[2023-03-31 18:04] LABS: CHLORIDE 106 MMOL/L (99-107); POTASSIUM 3.7 MMOL/L (3.5-5.1); SODIUM 140 MMOL/L (135-145)
[2023-03-31 18:15] LABS: BILIRUBIN,DIRECT 0.9 MG/DL (0-0.3)
[2023-03-31 18:35] LABS: ALANINE AMINOTRANSFERASE 72 U/L (12-78); ALBUMIN 3.5 G/DL (3.4-5.0); ALBUMIN/GLOBULIN RATIO 0.8 (1.1-1.5); ALKALINE PHOSPHATASE 150 IU/L (46-116); ANION GAP 10 (8-16); ASPARTATE AMINO TRANSFERASE 113 U/L (10-37); BILIRUBIN,TOTAL 2.1 MG/DL (0.1-1.0); BLOOD UREA NITROGEN 5 MG/DL (7-18); BUN/CREATININE RATIO 6.9 (10.0-20.0); CALCIUM 8.3 MG/DL (8.5-10.1); CREATININE 0.72 MG/DL (0.60-1.10); GLUCOSE 86 MG/DL (70-104); PRO BRAIN NATRIURETIC PEPTIDE 48 PG/ML (0-125); TOTAL CARBON DIOXIDE 23.6 MMOL/L (24-32); TOTAL PROTEIN 7.8 G/DL (6.4-8.2); eCRCL 141 ML/MIN; eGFR > 90 ML/MIN
[2023-03-31 18:55] LABS: APTT 32 SECONDS (22-32); D-DIMER 2.85 MG/L FEU (0-0.50); INR 1.4 INR
[2023-03-31 19:02] LABS: PROTHROMBIN TIME 14.3 SECONDS (9.0-12.0)
[2023-03-31] MEDS ORDERED: iohexol 350MG/ML 100ml bottle IV ONE (19:45)
[2023-03-31 20:40] VITALS: TEMP 98.1
[2023-03-31 21:45] VITALS: BP 117/71; PULSE 75; RESP 16; O2SAT 97
== END 2023-03-31 21:48 | disposition home or self-care (01) ==
LOC: ER 14:50
DX: M79.604 Pain in right leg (principal); M79.605 Pain in left leg; Z79.899 Other long term (current) drug therapy
CPT/HCPCS: 36415; 71045; 71275; 80053; 82248; 83880; 84484; 85008; 85025; 85379; 85610; 85730; 93005; 93971; 99285; J3490; Q9967